=== PATIENT | male | born 1960 | race Caucasian/White ===

== ENCOUNTER 2019-01-16 09:53 | Inpatient (IN) | payer OTHER ==
[2019-01-16] MEDS ORDERED: MIDAZOLAM 1 MG/ML 2 ML INJ (11:51)
[2019-01-16] MEDS: BUPIVACAINE 0.5%/EPI (SDV) 30 ML INJ (13:52)
[2019-01-16] MEDS: CEFAZOLIN 1 GM INJ (13:53)
[2019-01-16] MEDS: CA CHLORIDE (GM) 10% 10 ML INJ (13:54)
[2019-01-16] MEDS: SURGIFOAM POWDER 1 GM KIT (13:55)
[2019-01-16] MEDS: THROMBIN (BOVINE) 5,000 UNIT VIAL TP (13:55)
[2019-01-16] MEDS: HEPARIN 1000 UNITS/ML 10 ML INJ (14:07)
[2019-01-16] MEDS: FENTAnyl 50 MCG/ML VIAL (15:13)
[2019-01-16] MEDS: BUPIVACAINE 0.25% (MPF) 30 ML INJ (15:13)
[2019-01-16] MEDS ORDERED: LIDOCAINE 2% (SDV) 5 ML INJ (15:35)
[2019-01-16] MEDS ORDERED: PROPOFOL 20 ML (15:35)
[2019-01-16] MEDS ORDERED: ROCURONIUM 50 MG INJ (15:35)
[2019-01-16] MEDS ORDERED: CEFAZOLIN 1 GM INJ (15:37)
[2019-01-16] MEDS ORDERED: ONDANSETRON 4 MG INJ ×2 (15:37→16:10)
[2019-01-16] MEDS ORDERED: GLYCOPYRROLATE 0.4 MG INJ (15:37)
[2019-01-16] MEDS ORDERED: NEOSTIGMINE 3 MG/3 ML SYRINGE (15:37)
[2019-01-16] MEDS: D5W-0.45 NACL + KCL 20 MEQ 1,000 ML IV (15:43)
[2019-01-16] MEDS ORDERED: DIPHENHYDRAMINE 25 MG CAP PO (16:00)
[2019-01-16] MEDS ORDERED: CEPASTAT LOZENGE MT (16:00)
[2019-01-16] MEDS ORDERED: DIPHENHYDRAMINE 50 MG INJ IV ×2 (16:00→16:30)
[2019-01-16] MEDS ORDERED: HYDROmorphONE 0.5 MG/0.5 ML SYG IV (16:00)
[2019-01-16] MEDS ORDERED: NALOXONE (0.4 MG/ML) INJ IV (16:00)
[2019-01-16] MEDS ORDERED: BISACODYL 10 MG SUPP PR (16:00)
[2019-01-16] MEDS: ONDANSETRON 4 MG INJ IV ×2 (16:13→23:13)
[2019-01-16] MEDS: CEFAZOLIN 1 GM/50 ML (PMX) 50 ML IVPB (16:13)
[2019-01-16] MEDS ORDERED: MEPERIDINE 25 MG INJ IV (16:30)
[2019-01-16] MEDS ORDERED: hydrALAzine 20 MG INJ IV (16:30)
[2019-01-16] MEDS ORDERED: METOCLOPRAMIDE 10 MG INJ IV (16:30)
[2019-01-16] MEDS ORDERED: HYDROmorphONE 1 MG/5 ML IV SYRINGE IV ×2 (16:30)
[2019-01-16] MEDS ORDERED: FENTAnyl 50 MCG/ML VIAL IV (16:30)
[2019-01-16] MEDS ORDERED: LABETALOL HCL 20MG INJ IV (16:30)
[2019-01-16] MEDS: HYDROmorphONE 0.2 MG/ML PCA IV (16:33)
[2019-01-16] MEDS: DOCUSATE SODIUM 100 MG CAP PO (21:00)
[2019-01-16] MEDS: traMADol 50 MG TAB PO (23:13)
[2019-01-17] MEDS: CEFAZOLIN 1 GM/50 ML (PMX) 50 ML IVPB ×2 (00:16→09:12)
[2019-01-17] MEDS: D5W-0.45 NACL + KCL 20 MEQ 1,000 ML IV ×3 (00:16→21:10)
[2019-01-17] MEDS: traMADol 50 MG TAB PO (00:18)
[2019-01-17] MEDS: HYDROmorphONE 0.2 MG/ML PCA IV ×2 (01:20→18:59)
[2019-01-17] MEDS: CARISOPRODOL 350 MG TAB PO ×3 (04:14→21:00)
[2019-01-17 05:02] LABS: ADD MAN DIFF? NO; BASOPHILS % 0.2 % (0.0-2.0); HEMATOCRIT 43.8 % (42.0-52.0); HEMOGLOBIN 15.2 g/dl (14.0-18.0); LYMPHOCYTES # 0.9 10^3/ul (0.8-2.9); LYMPHOCYTES % 7.4 % (15.0-51.0); MEAN CORPUSCULAR HEMOGLOBIN 31.8 pg (29.0-33.0); MEAN CORPUSCULAR HGB CONC 34.7 g/dl (32.0-37.0); MEAN CORPUSCULAR VOLUME 91.6 fl (82.0-101.0); MEAN PLATELET VOLUME 10.3 fl (7.4-10.4); MONOCYTE # 0.9 10^3/ul (0.3-0.9); NEUTROPHIL # 10.8 10^3/ul (1.6-7.5); NEUTROPHILS % 85.1 % (39.0-77.0); PLATELET COUNT 205 10^3/UL (140-415); RED BLOOD COUNT 4.78 10^6/ul (4.70-6.10); RED CELL DISTRIBUTION WIDTH 11.6 % (11.5-14.5)
[2019-01-17 05:02] LABS: WHITE BLOOD COUNT 12.6 10^3/ul (4.8-10.8)
[2019-01-17 05:35] LABS: ANION GAP 15 (5-13); BLOOD UREA NITROGEN 12 mg/dl (7-20); CALCIUM 8.8 mg/dl (8.4-10.2); CARBON DIOXIDE 27 mmol/L (21-31); CHLORIDE 97 mmol/L (97-110); CREATININE 0.88 mg/dl (0.61-1.24); Estimated GFR > 60 mL/min (>60); GLUCOSE 181 mg/dl (70-220); MAGNESIUM 1.9 mg/dl (1.7-2.5); POTASSIUM 4.3 mmol/L (3.5-5.1); SODIUM 139 mmol/L (135-144)
[2019-01-17] MEDS: ONDANSETRON 4 MG INJ IV ×2 (06:16→13:34)
[2019-01-17] MEDS: DOCUSATE SODIUM 100 MG CAP PO ×2 (09:11→21:00)
[2019-01-17] MEDS: ZOLPIDEM 5 MG TAB PO (21:01)
[2019-01-17] MEDS: MONTELUKAST 10 MG TAB PO (21:04)
[2019-01-18 05:14] LABS: ADD MAN DIFF? NO
[2019-01-18 05:17] LABS: WHITE BLOOD COUNT 7.9 10^3/ul (4.8-10.8)
[2019-01-18 05:17] LABS: BASOPHILS % 0.5 % (0.0-2.0); EOSINOPHILS # 0.1 10^3/ul (0.0-0.5); EOSINOPHILS % 1.8 % (0.0-7.0); HEMATOCRIT 39.8 % (42.0-52.0); HEMOGLOBIN 13.6 g/dl (14.0-18.0); LYMPHOCYTES # 2.2 10^3/ul (0.8-2.9); LYMPHOCYTES % 27.5 % (15.0-51.0); MEAN CORPUSCULAR HEMOGLOBIN 32.2 pg (29.0-33.0); MEAN CORPUSCULAR HGB CONC 34.2 g/dl (32.0-37.0); MEAN CORPUSCULAR VOLUME 94.1 fl (82.0-101.0); MEAN PLATELET VOLUME 10.9 fl (7.4-10.4); MONOCYTES % 12.5 % (0.0-11.0); NEUTROPHIL # 4.6 10^3/ul (1.6-7.5); NEUTROPHILS % 57.4 % (39.0-77.0); PLATELET COUNT 164 10^3/UL (140-415); RED BLOOD COUNT 4.23 10^6/ul (4.70-6.10); RED CELL DISTRIBUTION WIDTH 11.6 % (11.5-14.5)
[2019-01-18] MEDS: PANTOPRAZOLE (EC) 40 MG TAB PO (05:32)
[2019-01-18 05:52] LABS: ANION GAP 11 (5-13); BLOOD UREA NITROGEN 10 mg/dl (7-20); CALCIUM 8.2 mg/dl (8.4-10.2); CARBON DIOXIDE 28 mmol/L (21-31); CHLORIDE 98 mmol/L (97-110); CREATININE 0.89 mg/dl (0.61-1.24); Estimated GFR > 60 mL/min (>60); GLUCOSE 147 mg/dl (70-220); MAGNESIUM 1.9 mg/dl (1.7-2.5); POTASSIUM 3.7 mmol/L (3.5-5.1); SODIUM 137 mmol/L (135-144)
[2019-01-18] MEDS: D5W-0.45 NACL + KCL 20 MEQ 1,000 ML IV ×2 (07:43→17:43)
[2019-01-18] MEDS: AL HYDROX/MG HYDROX/SIMETH 30 ML CUP PO ×3 (08:16→20:28)
[2019-01-18] MEDS: DOCUSATE SODIUM 100 MG CAP PO ×2 (08:16→20:27)
[2019-01-18] MEDS: LISINOPRIL 5 MG TAB PO (08:16)
[2019-01-18] MEDS: LORATADINE 10 MG TAB PO (08:17)
[2019-01-18] MEDS: ACETAMINOPHEN 325 MG TAB PO (08:17)
[2019-01-18] MEDS: traMADol 50 MG TAB PO ×3 (09:35→18:03)
[2019-01-18] MEDS: MONTELUKAST 10 MG TAB PO (20:28)
[2019-01-19] MEDS: D5W-0.45 NACL + KCL 20 MEQ 1,000 ML IV (03:43)
[2019-01-19 05:11] LABS: ADD MAN DIFF? NO
[2019-01-19 05:15] LABS: BASOPHIL # 0.1 10^3/ul (0.0-0.1); BASOPHILS % 0.7 % (0.0-2.0); EOSINOPHILS # 0.2 10^3/ul (0.0-0.5); EOSINOPHILS % 3.1 % (0.0-7.0); HEMATOCRIT 40.2 % (42.0-52.0); HEMOGLOBIN 13.8 g/dl (14.0-18.0); LYMPHOCYTES % 27.5 % (15.0-51.0); MEAN CORPUSCULAR HEMOGLOBIN 31.8 pg (29.0-33.0); MEAN CORPUSCULAR HGB CONC 34.3 g/dl (32.0-37.0); MEAN CORPUSCULAR VOLUME 92.6 fl (82.0-101.0); MEAN PLATELET VOLUME 10.8 fl (7.4-10.4); MONOCYTE # 0.7 10^3/ul (0.3-0.9); MONOCYTES % 10.3 % (0.0-11.0); NEUTROPHIL # 4.2 10^3/ul (1.6-7.5); PLATELET COUNT 179 10^3/UL (140-415); RED BLOOD COUNT 4.34 10^6/ul (4.70-6.10); RED CELL DISTRIBUTION WIDTH 11.3 % (11.5-14.5)
[2019-01-19 05:15] LABS: WHITE BLOOD COUNT 7.2 10^3/ul (4.8-10.8)
[2019-01-19 05:53] LABS: ANION GAP 6 (5-13); BLOOD UREA NITROGEN 9 mg/dl (7-20); CALCIUM 8.6 mg/dl (8.4-10.2); CARBON DIOXIDE 33 mmol/L (21-31); CHLORIDE 100 mmol/L (97-110); CREATININE 0.77 mg/dl (0.61-1.24); Estimated GFR > 60 mL/min (>60); GLUCOSE 101 mg/dl (70-220); MAGNESIUM 2.4 mg/dl (1.7-2.5); POTASSIUM 4.2 mmol/L (3.5-5.1); SODIUM 139 mmol/L (135-144)
[2019-01-19] MEDS: PANTOPRAZOLE (EC) 40 MG TAB PO (06:08)
[2019-01-19] MEDS: traMADol 50 MG TAB PO ×2 (06:24→10:37)
[2019-01-19] MEDS: LORATADINE 10 MG TAB PO (08:59)
[2019-01-19] MEDS: LISINOPRIL 5 MG TAB PO (08:59)
[2019-01-19] MEDS: DOCUSATE SODIUM 100 MG CAP PO (08:59)
[2019-01-19 12:38] LABS: BASOPHILS % (M) 1 % (0-2); EOSINOPHILS % (M) 3 % (0-7); ERYTHROBLAST% (NRBC) (M) 1 % (0-0); GIANT THROMBO% (M) 1 % (0-0); LYMPHOCYTES #M 1.9 10^3/ul (0.8-2.9); LYMPHOCYTES % (M) 27 % (15-51); MONOCYTE #M 0.7 10^3/ul (0.3-0.9); MONOCYTES % (M) 11 % (0-11); PLATELET ESTIMATE NORMAL; REACTIVE LYMPHOCYTES #M 0.2 10^3/ul (0.0-0.0); REACTIVE LYMPHOCYTES% (M) 4 % (0-0); SEGMENTED NEUTROPHILS (M) % 54 % (39-77); SMUDGE%M 8 % (0-0)
== END 2019-01-19 11:36 | disposition home or self-care (01) | DRG 517 ==
LOC: REC 09:53 → MS1 01-17 17:14
PROC: 01NB0ZZ Release Lumbar Nerve, Open Approach (ICD-10-PCS; principal; 2019-01-16 12:00)
DX: M48.062 Spinal stenosis, lumbar region with neurogenic claudication (principal); M54.16 Radiculopathy, lumbar region; M48.07 Spinal stenosis, lumbosacral region; I10 Essential (primary) hypertension; K21.9 Gastro-esophageal reflux disease without esophagitis; J30.9 Allergic rhinitis, unspecified
CPT/HCPCS: 72020; 80048; 83735; 85025; 86999; 87086; 88304; 88311; 97116; 97161; 97530